=== PATIENT | male | born 1990 | race Caucasian/White ===

== ENCOUNTER 2019-01-07 10:25 | Day surgery (SDC) | payer MEDICAID ==
[~2019-01-07 10:25] MED LIST: PROPOFOL INJ 200 MG/20 ML VIAL IV ONE
[2019-01-07] MEDS ORDERED: PROPOFOL INJ 200 MG/20 ML VIAL IV ONE ×2 (11:04→11:15)
[2019-01-07 12:52] VITALS: BP 117/87
--- NOTE | 2019-01-07 13:48 | Operative Report ---
Operative Report DATE OF SURGERY: 01/07/19 Operative Report: The risks, benefits and alternatives of the procedure including the risks of bleeding, perforation requiring surgery have been explained to the patient in detail and informed consent has been obtained. Patient is taken to the endoscopy suite and placed in a left, lateral decubital position. Timeout was called. Propofol medication is administered. Rectal examination is done which did not reveal any masses, tears or fissures. An Olympus videoscope was introduced into the patient's rectum. The scope was then carefully advanced all the way to the cecum without over insufflation. The scope is then sequentially pulled back via the various segments of the colon including the ascending colon, hepatic flexure, transverse colon, splenic flexure, descending colon and finally into the rectosigmoid portions of the colon. Retroflexion maneuver was perfo rmed. Prep was reasonably good. PREOPERATIVE DIAGNOSIS: Active Crohn's disease in the large colon. Intubation of the terminal ileum actually reveals normal mucosa. Somewhat concerning colon mass noted at 51 cm. There is a concern that this could be colorectal cancer. Biopsies obtained. The area was tattooed with Serena ink for potential location. If he does need surgery now because his Crohn's activity is significant question of whether he may benefit from a total colectomy POSTOPERATIVE DIAGNOSIS: Crohn's disease with colonic mass at 51 cm status post biopsy and submucosal tattoo ink for future location OPERATION: Colonoscopy with submucosal injection of Serena ink. Colonoscopy with biopsy SURGEON: BLOSSOM ANTOINE ANESTHESIA: LMAC TISSUE REMOVED OR ALTERED: As noted above. COMPLICATIONS: None. ESTIMATED BLOOD LOSS: None. INTRAOPERATIVE FINDINGS: As noted above. PROCEDURE: Patient tolerated the procedure well. No immediate postprocedure complications are noted. Patient discharged in good condition. Discharge date 01/07/2019. Discharge diet: Regular. Discharge activity: Regular. 2-3-week follow-up to discuss findings. Patient is instructed to call the office or proceed to the emergency room should there be any further questions. Wait on the pathology.
== END 2019-01-07 12:10 | disposition home or self-care (01) ==
LOC: END 10:25
PROVIDERS: ATTEND Internal Medicine Gastroenterology
DX: K50.919 Crohn's disease, unspecified, with unspecified complications (principal); K63.9 Disease of intestine, unspecified; K52.9 Noninfective gastroenteritis and colitis, unspecified; D64.9 Anemia, unspecified; Z79.899 Other long term (current) drug therapy; Z88.5 Allergy status to narcotic agent
CPT/HCPCS: 45380; 45381; 88305 ×2; J2704; 811

== ENCOUNTER 2019-08-23 10:26 | Day surgery (SDC) | payer MEDICAID ==
--- NOTE | 2019-08-23 11:05 | Operative Report ---
Operative Report DATE OF SURGERY: 08/23/19 Operative Report: The risks, benefits and alternatives of the procedure including the risk of bleeding, perforation requiring surgery have been explained to the patient in detail and informed consent has been obtained. Patient is taken back to the endoscopy suite and placed in the left, lateral decubital position. Timeout was called. Propofol medication is administered. Rectal examination is done which did not reveal any masses, tears or fissures. An Olympus videoscope was introduced into the patient's rectum. Scope was then carefully advanced all the way to the cecum. Cecum is identified by the usual anatomical landmarks of the ileocecal valve as well as the appendiceal office. Photodocumentation is obtained. Scope was then sequentially pulled back via the various segments of the colon including the ascending colon, hepatic flexure, transverse colon, sple yoon flexure, descending colon and finally into the rectosigmoid portions of the colon. Retroflexion maneuvers performed. PREOPERATIVE DIAGNOSIS: Follow-up Crohn's disease POSTOPERATIVE DIAGNOSIS: Mild improvement in some of the mucosal features however has not decreased in size. However there is more inflammation noted in the area of the cecum/terminal ileum. I would recommend possible surgical referral at this point. OPERATION: Colonoscopy with biopsy SURGEON: BLOSSOM ANTOINE ANESTHESIA: LMAC TISSUE REMOVED OR ALTERED: As noted above. COMPLICATIONS: None. ESTIMATED BLOOD LOSS: None. INTRAOPERATIVE FINDINGS: As noted above. PROCEDURE: Patient tolerated the procedure well. No immediate postprocedure complications are noted. Patient is discharged in good condition. Discharge date 08/23/2019. Discharge diet: Regular. Discharge activity: Regular. 2 to 3-week follow-up to discuss findings. Patient is instructed to call the office or proceed to the emergency room should there be any further questions. Wait on the pathology. May need surgical referral.
[2019-08-23 11:37] VITALS: BP 102/72
== END 2019-08-23 11:48 | disposition home or self-care (01) ==
LOC: END 10:26
PROVIDERS: ATTEND Internal Medicine Gastroenterology
DX: K50.119 Crohn's disease of large intestine with unspecified complications (principal); Z11.1 Encounter for screening for respiratory tuberculosis; K52.9 Noninfective gastroenteritis and colitis, unspecified
CPT/HCPCS: 45380; 88305 ×2; J2704; 811

== ENCOUNTER 2019-11-15 11:01 | Day surgery (SDC) | payer MEDICAID ==
[~2019-11-15 11:01] MED LIST changes: +FENTANYL CITRATE INJ/PF 100 MCG/2 ML AMPUL ONE; +MIDAZOLAM 2 MG/2 ML INJ ONE; +ONDANSETRON HCL INJ/PF 4 MG/2 ML SDV ONE
[2019-11-15 11:46] LABS: HEMATOCRIT 47.4 % (37.9-51.0); HEMOGLOBIN 16.6 g/dL (13.5-17.0); MEAN CORPUSCULAR HEMOGLOBIN 32.1 pg (27.0-33.4); MEAN CORPUSCULAR VOLUME 92 fl (80-97); PLATELET COUNT 261 10^3/uL (150-450); RED BLOOD COUNT 5.17 10^6/uL (4.35-5.55)
[2019-11-15 12:07] LABS: ANION GAP 12 (5-19); BLOOD UREA NITROGEN 8 mg/dL (7-20); CALCIUM 10.1 mg/dL (8.4-10.2); CARBON DIOXIDE 26 mmol/L (22-30); CHLORIDE 102 mmol/L (98-107); GLUCOSE 84 mg/dL (75-110); POTASSIUM 4.1 mmol/L (3.6-5.0)
[2019-11-15] MEDS ORDERED: MEPERIDINE HCL/PF INJ 25 MG/1 ML DISP.SYRIN IV PRN (15:34)
[2019-11-15] MEDS ORDERED: PROMETHAZINE HCL INJ 25 MG/1 ML VIAL IV PRN ×2 (15:34)
[2019-11-15] MEDS ORDERED: FENTANYL CITRATE INJ/PF 100 MCG/2 ML AMPUL IV PRN ×3 (15:34)
[2019-11-15] MEDS ORDERED: DIPHENHYDRAMINE HCL 50 MG/ML VIAL IV PRN (15:34)
[2019-11-15] MEDS ORDERED: ONDANSETRON HCL INJ/PF 4 MG/2 ML SDV IV PRN (15:44)
[2019-11-15 18:05] VITALS: BP 106/70
--- NOTE | 2019-11-26 08:28 | Discharge Summary ---
Discharge Summary (SDC) - Discharge Final Diagnosis: Sigmoid colon polyp Date of Surgery: 11/15/19 Discharge Date: 11/15/19 Condition: Stable Forms: ASU Anesthesia D/C Instruction, Discharge POC-Surgical Service Treatment or Instructions: Discharge home. Diet as tolerated. Activity: Nonstrenuous. Follow-up with [place] [facility] in 7 to 10 days. Referrals: EULALIO LEE MD [ACTIVE STAFF] - (Follow up 11/25/19) RAHUL JOEL DO [Primary Care Provider] - Discharge Diet: As Tolerated Respiratory Treatments at Home: Deep Breathing/Coughing Discharge Activity: Balance Activity w/Rest Home Care Assistance: None Needed Report the Following to Your Physician Immediately: Shortness of Breath, Fever over 101 Degrees, Unusual Bleeding, Redness, Swelling, Warmth, IV Site Infection Signs
--- NOTE | 2019-11-26 08:32 | Operative Report ---
Nonrecallable Operative Report DATE OF SURGERY: 11/15/19 PREOPERATIVE DIAGNOSIS: Large polyp of the sigmoid colon, possibly inflammatory, possibly adenomatous. POSTOPERATIVE DIAGNOSIS: Same as above OPERATION: Colonoscopy with snare polypectomy. SURGEON: EULALIO LEE ANESTHESIA: LMAC TISSUE REMOVED OR ALTERED: Large polyp of the sigmoid colon, removed via hot snare polypectomy COMPLICATIONS: None apparent ESTIMATED BLOOD LOSS: Minimal PROCEDURE: Procedure in detail: After informed consent was obtained, the patient was brought to the operating room and laid in the left lateral decubitus position. The endoscope was inserted into the rectum. It was passed up the rectum, sigmoid colon, descending colon, across the transverse colon, down the ascending colon, and into the cecum. The ileocecal valve and appendiceal orifice were identified. The scope was then withdrawn, circumferentially noting the mucosa. The prep was good. The patient had a large amount of inflammatory polyps throughout the colon. The vast majority of these inflammatory polyps were very small. He has a history of poorly controlled Crohn's disease. The scope was withdrawn past the ascending colon, transverse colon, down the descending colon, and into the sigmoid colon. In the sigmoid colon there was a large, inflammatory appearing polyp. It was in the area of a tattoo, marked by Dr. Flores. Hot snare polypectomy was used to remove this large polypoid lesion. No other large polypoid lesions were identified in the area. Once the polyp was removed, the scope was withdrawn down into the rectum. No other suspicious abnormalities were identified. The scope was removed from the patient, and the procedure was concluded. All sponge, instrument, and needle counts were correct x2. Condition: Stable.
== END 2019-11-15 17:40 | disposition home or self-care (01) ==
LOC: OROUT 11:01
PROVIDERS: ATTEND Surgery
DX: Z12.11 Encounter for screening for malignant neoplasm of colon (principal); D12.5 Benign neoplasm of sigmoid colon; K50.90 Crohn's disease, unspecified, without complications; Z86.010 Personal history of colon polyps; Z88.5 Allergy status to narcotic agent; Z79.899 Other long term (current) drug therapy
CPT/HCPCS: 45380; 36415; 85027; 80048; 88305 ×2; 00811; J2250; J3010; J2405; J2704; 811

== ENCOUNTER → 2020-06-30 | Outpatient (CLI) | payer MEDICAID | LOC: OD 11:10 | PROVIDERS: ATTEND Internal Medicine Gastroenterology | DX: K50.90 Crohn's disease, unspecified, without complications (principal) | CPT/HCPCS: 36415; 85652; 86140 ==

== ENCOUNTER 2020-07-13 07:25 | Day surgery (SDC) | payer MEDICAID ==
[~2020-07-13 07:25] MED LIST changes: -FENTANYL CITRATE INJ/PF 100 MCG/2 ML AMPUL ONE; -MIDAZOLAM 2 MG/2 ML INJ ONE; -ONDANSETRON HCL INJ/PF 4 MG/2 ML SDV ONE
[2020-07-13] MEDS ORDERED: PROPOFOL INJ 200 MG/20 ML VIAL IV ONE (09:19)
--- NOTE | 2020-07-13 09:28 | Operative Report ---
Operative Report DATE OF SURGERY: 07/13/20 Operative Report: The risk, benefits and alternatives of the procedure including the risk of bleeding, perforation requiring surgery have been explained to the patient in detail and informed consent has been obtained. Patient is placed in a left, lateral decubital position. Timeout was called. Propofol medication is administered. Rectal examination is done which did not reveal any masses, tears or fissures. An Olympus videoscope was introduced into the patient's rectum. Patient has a previous history of resection of Crohn's disease. Scope was advanced all the way to the cecum. Cecum was identified by the usual anatomical landmarks including the ileocecal valve as well as appendiceal office. Photodocumentation is obtained. Scope was then sequentially pulled back via the rest segments of the colon including the ascending colon, hepatic flexure, and distal portions of the colon. Retroflexion maneuver is performed. PREOPERATIVE DIAGNOSIS: History of Crohn's disease on biological therapy status post resection in the past. POSTOPERATIVE DIAGNOSIS: Status post resection as noted. Crohn's nodules noted on the left side of the colon, noted previous resection although disease is noted in the area status post biopsy. Right side: Disease with nodules in the cecum. No stricture is noted. OPERATION: Colonoscopy with biopsy SURGEON: BLOSSOM ANTOINE ANESTHESIA: LMAC TISSUE REMOVED OR ALTERED: As noted above. COMPLICATIONS: None. ESTIMATED BLOOD LOSS: None. INTRAOPERATIVE FINDINGS: As noted above. PROCEDURE: Patient tolerated the procedure well. No immediate postprocedure complications are noted. Patient is discharged in good condition. Discharge date 07/13/2020. Discharge diet: Regular. Discharge activity: Regular. 2 to 3-week follow-up to discuss findings. Patient is instructed to call the o ffice or proceed to the emergency room should there be any further problems or questions. Wait on the pathology. Surveillance colonoscopy in 1 year.
[2020-07-13 10:28] VITALS: BP 115/60
== END 2020-07-13 10:30 | disposition home or self-care (01) ==
LOC: END 07:25
PROVIDERS: ATTEND Internal Medicine Gastroenterology
DX: K50.119 Crohn's disease of large intestine with unspecified complications (principal); Z88.5 Allergy status to narcotic agent; K52.9 Noninfective gastroenteritis and colitis, unspecified; K62.89 Other specified diseases of anus and rectum; Z03.818 Encounter for observation for suspected exposure to other biological agents ruled out
CPT/HCPCS: 45380; 88305 ×2; 00811; J2704; 811